=== PATIENT | male | born 1985 | race African-American/Black ===

== ENCOUNTER 2023-04-10 14:40 | Outpatient (CLI) | payer BC ==
[2023-04-10 15:40] LABS: BASOPHILS # (AUTO) 0.1 10^3/uL (0.0-0.1); BASOPHILS % (AUTO) 1.5 %; EOSINOPHILS # (AUTO) 0.3 10^3/uL (0.0-0.7); EOSINOPHILS % (AUTO) 4.3 %; HCT - HEMATOCRIT 45.5 % (42.0-52.0); HGB - HEMOGLOBIN 14.7 g/dL (14.0-18.0); LYMPHOCYTES # (AUTO) 1.5 10^3/uL (1.5-3.5); LYMPHOCYTES % (AUTO) 25.1 %; MEAN CORPUSCULAR HEMOGLOBIN 31.6 pg (27.0-31.0); MEAN CORPUSCULAR HGB CONC 32.3 g/dL (32.0-36.0); MEAN CORPUSCULAR VOLUME 97.8 fL (80.0-94.0); MEAN PLATELET VOLUME 11.8 fL (7.4-11.4); MONOCYTES # (AUTO) 0.5 10^3/uL (0.0-1.0); MONOCYTES % (AUTO) 7.4 %; NEUTROPHILS # (AUTO) 3.7 10^3/uL (1.5-6.6); NEUTROPHILS % (AUTO) 61.7 %; PLT - PLATELET COUNT 213 10^3/uL (130-450); RED BLOOD COUNT 4.65 10^6/uL (4.70-6.10); RED CELL DISTRIBUTION WIDTH 12.6 % (12.0-15.0); WHITE BLOOD COUNT 6.1 x10^3/uL (4.8-10.8)
[2023-04-10 16:12] LABS: THYROID STIMULATING HORMONE 1.04 uIU/mL (0.34-5.60)
[2023-04-10 16:34] LABS: CALCIUM 9.6 mg/dL (8.5-10.3); POTASSIUM 4.2 mmol/L (3.5-4.5)
== END 2023-04-10 14:41 | disposition home or self-care (01) ==
LOC: LAB 14:40
PROVIDERS: ATTEND Registered Nurse
DX: K51.00 Ulcerative (chronic) pancolitis without complications (principal)
CPT/HCPCS: 36415; 80048; 81599; 84433; 84443; 85025

== ENCOUNTER 2023-04-12 15:12 | Outpatient (CLI) | payer BC | END 2023-04-12 15:13 | disposition home or self-care (01) | LOC: LAB.R 15:12 | PROVIDERS: ATTEND Registered Nurse | DX: K51.00 Ulcerative (chronic) pancolitis without complications (principal) | CPT/HCPCS: 83993; 87493 ==

== ENCOUNTER 2023-04-22 11:57 | Outpatient (CLI) | payer BC | END 2023-04-22 11:58 | disposition home or self-care (01) | LOC: LAB.R 11:57 | PROVIDERS: ATTEND Registered Nurse | DX: K51.90 Ulcerative colitis, unspecified, without complications (principal) | CPT/HCPCS: 83993 ==

== ENCOUNTER 2023-07-23 14:58 | Outpatient (CLI) | payer BC ==
[2023-07-23 16:09] LABS: MAGNESIUM 1.9 mg/dL (1.7-2.3)
[2023-07-23 16:14] LABS: CALCIUM 9.2 mg/dL (8.5-10.3); CREATININE 0.7 mg/dL (0.6-1.3); CRP - C-REACTIVE PROTEIN 1.5 mg/dL (<0.5); POTASSIUM 4.3 mmol/L (3.5-4.5)
[2023-07-23 16:16] LABS: THYROID STIMULATING HORMONE 1.01 uIU/mL (0.34-5.60)
[2023-07-23 16:22] LABS: FERRITIN 202.1 ng/mL (23.9-336.2)
[2023-07-24 07:10] LABS: VITAMIN D 25-HYDROXY 26.9 ng/mL (30.0-100.0)
== END 2023-07-23 14:59 | disposition home or self-care (01) ==
LOC: LAB 14:58
PROVIDERS: ATTEND Registered Nurse
DX: K51.00 Ulcerative (chronic) pancolitis without complications (principal)
CPT/HCPCS: 36415; 80048; 82306; 82607; 82728; 82746; 83735; 84436; 84443; 84630; 85651; 86140

== ENCOUNTER 2023-10-15 15:17 | Outpatient (CLI) | payer BC ==
[2023-10-15 15:32] LABS: BASOPHILS # (AUTO) 0.1 10^3/uL (0.0-0.1); BASOPHILS % (AUTO) 0.8 %; EOSINOPHILS # (AUTO) 0.6 10^3/uL (0.0-0.7); EOSINOPHILS % (AUTO) 7.4 %; HCT - HEMATOCRIT 42.8 % (42.0-52.0); HGB - HEMOGLOBIN 13.7 g/dL (14.0-18.0); LYMPHOCYTES # (AUTO) 2.4 10^3/uL (1.5-3.5); LYMPHOCYTES % (AUTO) 30.3 %; MEAN CORPUSCULAR HEMOGLOBIN 31.8 pg (27.0-31.0); MEAN CORPUSCULAR VOLUME 99.3 fL (80.0-94.0); MEAN PLATELET VOLUME 10.6 fL (7.4-11.4); MONOCYTES # (AUTO) 0.5 10^3/uL (0.0-1.0); MONOCYTES % (AUTO) 6.7 %; NEUTROPHILS # (AUTO) 4.3 10^3/uL (1.5-6.6); NEUTROPHILS % (AUTO) 54.7 %; PLT - PLATELET COUNT 248 10^3/uL (130-450); RED BLOOD COUNT 4.31 10^6/uL (4.70-6.10); RED CELL DISTRIBUTION WIDTH 13.4 % (12.0-15.0); WHITE BLOOD COUNT 7.9 x10^3/uL (4.8-10.8)
[2023-10-15 16:02] LABS: ALBUMIN 4.3 g/dL (3.2-5.5); ALBUMIN/GLOBULIN RATIO 1.4 (1.0-2.2); ALKALINE PHOSPHATASE 83 IU/L (42-121); ALT ALANINE AMINOTRANSFERASE 24 IU/L (10-60); AST ASPARTATE AMINOTRANSFERASE 23 IU/L (10-42); BILIRUBIN,TOTAL 0.3 mg/dL (0.2-1.0); BUN - BLOOD UREA NITROGEN 12 mg/dL (6-20); CALCIUM 9.5 mg/dL (8.5-10.3); CARBON DIOXIDE - CO2 29 mmol/L (21-32); CHLORIDE 104 mmol/L (101-111); CREATININE 0.8 mg/dL (0.6-1.3); CRP - C-REACTIVE PROTEIN < 0.5 mg/dL (<0.5); GFR - MDRD 131 (>89); GLUCOSE 99 mg/dL (74-104); POTASSIUM 3.9 mmol/L (3.5-4.5); SODIUM 138 mmol/L (135-145); TOTAL PROTEIN 7.3 g/dL (6.4-8.9)
== END 2023-10-15 15:18 | disposition home or self-care (01) ==
LOC: LAB 15:17
PROVIDERS: ATTEND Registered Nurse
DX: K51.00 Ulcerative (chronic) pancolitis without complications (principal)
CPT/HCPCS: 36415; 80053; 85025; 85651; 86140

== ENCOUNTER 2023-10-17 08:00 | Outpatient (CLI) | payer BC | END 2023-10-17 23:59 | disposition home or self-care (01) | LOC: LAB.R 08:00 | PROVIDERS: ATTEND Registered Nurse | DX: K51.00 Ulcerative (chronic) pancolitis without complications (principal) | CPT/HCPCS: 83993 ==